=== PATIENT | male | born 1940 | race Caucasian/White ===

== ENCOUNTER 2021-09-08 12:53 | Inpatient (IN) | payer MEDICARE, BC ==
[~2021-09-08] VITALS: Ht 180.3 cm; Wt 96.6 kg
[2021-09-08 13:46] LABS: HEMATOCRIT 33.1 % (36.7-47.1); MEAN CORPUSCULAR HEMOGLOBIN 31.6 uug (23.8-33.4); PLATELET COUNT (AUTO) 165 K/uL (152-348)
--- NOTE | 2021-09-08 13:50 | NUR ---
Pt taken to CT by beatrice via gurney without difficulty.
[2021-09-08 13:59] LABS: CARBON DIOXIDE 37 mmol/L (21-32); CHLORIDE 96 mmol/L (98-107); GLUCOSE 110 mg/dL (74-106); POTASSIUM 3.7 mmol/L (3.5-5.1); UREA NITROGEN, BLOOD 19 mg/dL (7-18)
[2021-09-08 14:11] LABS: *BILIRUBIN,URIN NEGATIVE (NEGATIVE); *BLOOD, URINE NEGATIVE (NEGATIVE); *CLARITY,URINE CLEAR (CLEAR); *COLOR,URINE YELLOW (YELLOW); *KETONES,URINE NEGATIVE (NEGATIVE); *UROBILINOGEN,URINE >=8.0 E.U./dl (NORMAL); LEUKOCYTE ESTERASE ,URINE NEGATIVE (NEGATIVE); NITRITE, URINE NEGATIVE (NEGATIVE); PH,URINE 8.5 (5.0-8.0); UGLUCOSE NEGATIVE (NEGATIVE)
[2021-09-08 14:14] LABS: ALANINE AMINOTRANSFERASE 24 U/L (16-63); ALKALINE PHOSPHATASE 167 U/L (50-136); ASPARTATE AMINOTRANSFERASE 17 U/L (15-37); BILIRUBIN,DIRECT 0.9 mg/dL (0.0-0.2); BILIRUBIN,TOTAL 1.4 mg/dL (0.2-1.0); LIPASE 92 U/L (73-393); TOTAL PROTEIN, SERUM 6.9 g/dL (6.4-8.2)
--- NOTE | 2021-09-08 14:20 | NUR ---
Pt brought straight back to room 2a by utility clerk for severe back pain s/p slip and fall at [facility]. 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 Pt was immediately connected to bedside monitor, initial VS obtained VSS, Pt has 3+ pitting pedal edema, and slightly wet lung sounds at the bases. 128/72 upon arrival. 98.3 oral, 16rpm, pt is v-pacing at 100%, underlying rhythm is normal and regular SR at approx 80bpm. Pt has generalized weakness, and is markely weakened in the lower extremities. Pt denies any SOB, n/v, or dizziness.
[2021-09-08 14:37] LABS: CREATINE KINASE, TOTAL 29 U/L (39-308)
--- NOTE | 2021-09-08 14:45 | NUR ---
Pt escorted to bathroom via WC, per pt request bc pt was having BM and did not want to use bedside commode. Pt used the facilities and was escorted back to room and placed back onto rmaroa in pos of comfort. VS rechecked, VSS
--- NOTE | 2021-09-08 14:47 | NUR ---
Pt just taken down to CT by tech via [employer]. EKG done and shown to EDMD.
[2021-09-08] MEDS ORDERED: FUROSEMIDE 40 MG/4 ML VIAL IV ONE (15:30)
[2021-09-08] MEDS ORDERED: MORPHINE SULFATE 2 MG/1 ML DISP.SYRIN IV ONE (15:30)
--- NOTE | 2021-09-08 15:30 | NUR ---
20g angio inserted into Lt wrist without difficulty. Morphine and zofran given immediately after inserting IV. Pt tolerated well. Pt stated that he did feel some relief with the morphine.
[2021-09-08] MEDS ORDERED: ACETAMINOPHEN 325 MG TABLET PO PRN (15:45)
[2021-09-08] MEDS ORDERED: REMEDY ESSENTIAL ZINC PASTE 113 GM TP PRN (15:45)
[2021-09-08] MEDS ORDERED: ONDANSETRON 4 MG/2 ML VIAL IV PRN (15:45)
[2021-09-08] MEDS ORDERED: MAGNESIUM HYDROXIDE 30 ML LIQUID UDC PO PRN (15:45)
--- NOTE | 2021-09-08 15:50 | NUR ---
Pt escorted to restroom for second time via WC for another BM. observed toilet after pt used the restroom. feces had definite pinkish appearance with marked reddish coloration due to poss blood, Pt stated that is might be bc of hemroids or because he has soars down there that do bleed from time to time. EDMD notified.
[2021-09-08] MEDS ORDERED: MORPHINE SULFATE 2 MG/1 ML DISP.SYRIN ONE (16:15)
[2021-09-08] MEDS ORDERED: ONDANSETRON 4 MG/2 ML VIAL ONE (16:16)
[2021-09-08] MEDS ORDERED: FUROSEMIDE 40 MG/4 ML VIAL ONE (16:16)
[2021-09-08] MEDS ORDERED: MAGNESIUM HYDROXIDE 30 ML LIQUID UDC ONE (16:17)
--- NOTE | 2021-09-08 19:20 | NUR ---
Pt transfered to room 330 on tele floor via wc without incident or difficulty, all belongings accounted for. Thorough report given staff AMRN using SBAR method around approx [id number]. Green light obtained from receiving RN. Admitting informed that pt will be pushed upstairs and that he needs to be rolled over, this was at approx 1720. Was waiting on admitting to transfer pt. Pt was taken to room, placed on hospital bed in pos of comfort, oriented to room, daughter showed up to visit. Bed dropped, rails up, call button given to pt and told to call the nurse when ever he wants to get out of bed; pt understood. Initiall admitting VSS, SHOT EXAMINER and teleRN at the bedside for intake. RN informed that pt is complaining of be severe pain and that he will need to be medicated kris. No s/sxof distress present. VSS.
--- NOTE | 2021-09-08 19:30 | NUR ---
Admitted patient in Tele floor under the care of Dr Dennison, patient alert oriented, but forgetful, no sob no chest paint, tele monitor v pacing, with pacemaker, right and left buttock open wound, right hip thru thigh purple bruises, and upper thru lower back purple bruises, daughter stated that patient had 4x fall at home. Patient complain of gen/back pain due multiple falls at home, will medicate patient as ordered. oriented to call lights, cont to monitor.
[2021-09-08 20:00] VITALS: BP 112/58
[2021-09-08] MEDS ORDERED: AMIO200T5 PO (20:29)
[2021-09-08] MEDS ORDERED: FURO-151 PO (20:29)
[2021-09-08] MEDS ORDERED: ESZO3TAB27 PO (20:29)
[2021-09-08] MEDS ORDERED: ALPR0.255 PO (20:29)
[2021-09-08] MEDS ORDERED: POLY17PO4 PO (20:29)
[2021-09-08] MEDS ORDERED: TAMS-3 PO (20:29)
[2021-09-08] MEDS ORDERED: APIX5TAB PO (20:29)
[2021-09-08] MEDS ORDERED: SILV50CR32 TP (20:29)
[2021-09-08] MEDS ORDERED: METF-494 PO (20:29)
[2021-09-08] MEDS ORDERED: TOLN113C2 TP (20:29)
[2021-09-08] MEDS ORDERED: PANT40TA49 PO (20:29)
[2021-09-08] MEDS ORDERED: ASPI81TA31 PO (20:29)
[2021-09-08] MEDS ORDERED: FUROSEMIDE 40 MG/4 ML VIAL IV SCH ×2 (21:00)
[2021-09-08] MEDS ORDERED: MORPHINE SULFATE 2 MG/1 ML DISP.SYRIN IV PRN (21:30)
--- NOTE | 2021-09-08 21:49 | NUR ---
Lasix 40mg IV not given, patient refused the meds, state he took lasix already.
--- NOTE | 2021-09-08 23:18 | NUR ---
Morphine 2mg iv push not effective according to the patient, Dr Dennison made rounds and told patient that he will order Dilaudid IV push for severe pain, made follow up call to md and said he will put the order.
[2021-09-09] VITALS: BP 107/53
[2021-09-09] MEDS ORDERED: HYDROMORPHONE 1 MG/1 ML DISP.SYRIN IV PRN (01:30)
--- NOTE | 2021-09-09 01:59 | NUR ---
Notify Dr Mushtaq Campbell patient request for dilaudid iv push for pain, with order.
[2021-09-09 04:00] VITALS: BP 133/65
[2021-09-09 06:51] LABS: HEMATOCRIT 31.2 % (36.7-47.1); MEAN CORPUSCULAR HEMOGLOBIN 32.3 uug (23.8-33.4); MEAN CORPUSCULAR VOLUME 96.1 fL (73.0-96.2); PLATELET COUNT (AUTO) 162 K/uL (152-348)
[2021-09-09 07:33] LABS: ALANINE AMINOTRANSFERASE 17 U/L (16-63); ALKALINE PHOSPHATASE 157 U/L (50-136); ASPARTATE AMINOTRANSFERASE 20 U/L (15-37); BILIRUBIN,TOTAL 1.5 mg/dL (0.2-1.0); CARBON DIOXIDE 38 mmol/L (21-32); CHLORIDE 97 mmol/L (98-107); CREATININE 1.5 mg/dL (0.6-1.3); GLUCOSE 165 mg/dL (74-106); MAGNESIUM 1.8 mg/dL (1.8-2.4); PHOSPHOROUS 5.6 mg/dL (2.5-4.9); TOTAL PROTEIN, SERUM 6.5 g/dL (6.4-8.2); UREA NITROGEN, BLOOD 21 mg/dL (7-18)
[2021-09-09] MEDS ORDERED: Medication Not On Formulary EA (Metformin Hcl (Metformin Hcl Er) 1 TAB) PO SCH (08:00)
[2021-09-09 08:30] VITALS: BP 107/45
[2021-09-09] MEDS ORDERED: APIXABAN 5 MG TABLET PO SCH (09:00)
[2021-09-09] MEDS ORDERED: TAMSULOSIN HCL 0.4 MG CAP.SR.24H PO SCH (09:00)
[2021-09-09 09:06] LABS: IRON, SERUM 45 ug/dL (50-175)
[2021-09-09] MEDS: ASPIRIN 81 MG TAB.CHEW PO SCH (09:25)
[2021-09-09] MEDS: ALPRAZOLAM 0.25 MG TABLET PO SCH ×2 (09:26→17:00)
[2021-09-09] MEDS: AMIODARONE HCL 200 MG TABLET PO SCH ×2 (09:27→22:11)
[2021-09-09] MEDS: APIXABAN 5 MG TABLET PO SCH ×2 (09:28→17:29)
[2021-09-09] MEDS: PANTOPRAZOLE SODIUM 40 MG TABLET.DR PO SCH ×2 (09:32→17:27)
[2021-09-09] MEDS: FUROSEMIDE 40 MG TABLET PO SCH (09:32)
--- NOTE | 2021-09-09 10:00 | NUR ---
pt is a/o x 4, saturating 84 % room air, placed pt on 3L nasal cannula, saturation improved to 93%. Pt does not complain of pain or shortness of breath. Will continue to monitor.
[2021-09-09] MEDS: METFORMIN XR 500 MG TAB.SR.24H PO SCH ×2 (10:04→17:27)
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
[2021-09-09] MEDS ORDERED: ZOLP10TA2 PO (15:51)
[2021-09-09] MEDS ORDERED: FENO145T21 PO (16:15)
[2021-09-09] MEDS ORDERED: ATOR80TA PO (16:15)
[2021-09-09] MEDS ORDERED: LISI10TA29 PO (16:16)
[2021-09-09] MEDS ORDERED: ERGO500040 PO (16:20)
[2021-09-09] MEDS ORDERED: AMLO-212 PO (16:20)
[2021-09-09] MEDS ORDERED: SOTA120T22 PO (16:31)
[2021-09-09] MEDS ORDERED: ALPR1TAB7 PO (16:31)
[2021-09-09] MEDS: GLUCERNA SHAKE 237 ML CAN PO SCH (17:28)
[2021-09-09] MEDS ORDERED: MIRALAX 17 GM POWD.PACK PO PRN (20:30)
[2021-09-09] MEDS: THERAHONEY GEL 1.5 OZ TUBE TOP SCH (21:00)
[2021-09-09] MEDS ORDERED: ATORVASTATIN 40 MG TABLET PO SCH (21:00)
[2021-09-09 21:14] VITALS: BP 114/56
[2021-09-09] MEDS: HYDROMORPHONE 1 MG/1 ML DISP.SYRIN IV PRN (22:42)
[2021-09-10 00:41] VITALS: BP 118/66
[2021-09-10] MEDS: ZOLPIDEM 5 MG TABLET PO PRN ×2 (01:08→22:00)
--- NOTE | 2021-09-10 01:10 | NUR ---
Received report from PM shift Kaden ROSENTHAL. Pt is alert and oriented x2, complaining or lower back pain. Explained to pt pain medication schedule. Offered Yolis DESAI to help with sleep, he agreed. On O2 at 3lpm via NC, no respiratory distress noted. IV access on L wrist G#20, patent and intact. Call light placed within reach. Will continue to monitor. Addendum: 09/10/21 at 0642 by MARCIA ALEGRIA RN Will given IV pain medication once due. Addendum: 09/10/21 at 0649 by MARCIA ALEGRIA RN Pt on NPO post midnight for abdominal ultrasound
[2021-09-10] MEDS: HYDROMORPHONE 1 MG/1 ML DISP.SYRIN IV PRN ×3 (03:36→20:56)
[2021-09-10 04:50] VITALS: BP 110/47
[2021-09-10] MEDS: PANTOPRAZOLE SODIUM 40 MG TABLET.DR PO SCH ×2 (06:33→17:23)
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
--- NOTE | 2021-09-10 08:00 | NUR ---
Assisted out of bed to commode. Sponge bath given. Maintained NPO, for abdominal ultrasound
[2021-09-10] MEDS ORDERED: SOTALOL HCL 120 MG PO SCH (09:00)
[2021-09-10] MEDS ORDERED: FENOFIBRATE NANOCRYSTALLIZED 145 MG TABLET PO SCH (09:00)
[2021-09-10] MEDS ORDERED: TAMSULOSIN HCL 0.4 MG CAP.SR.24H PO SCH (09:00)
[2021-09-10] MEDS ORDERED: SILVER SULFADIAZINE 1% CREAM 50 GM TP SCH (09:00)
[2021-09-10] MEDS ORDERED: ALPRAZOLAM 0.25 MG TABLET PO PRN (09:30)
[2021-09-10] MEDS ORDERED: ALPRAZOLAM 0.5 MG TABLET PO PRN (09:45)
--- NOTE | 2021-09-10 10:30 | NUR ---
Ultrasound of abdomen done. Breakfast tray served. Due medications given. Reports of back pain. Dilaudid 1 mg given with relief.
[2021-09-10] MEDS: METFORMIN XR 500 MG TAB.SR.24H PO SCH ×2 (10:49→17:23)
[2021-09-10] MEDS: FUROSEMIDE 40 MG TABLET PO SCH (10:50)
[2021-09-10] MEDS: ASPIRIN 81 MG TAB.CHEW PO SCH (10:50)
[2021-09-10] MEDS: LISINOPRIL 10 MG TABLET PO SCH (10:51)
[2021-09-10] MEDS: AMLODIPINE 5 MG TABLET PO SCH (10:51)
[2021-09-10] MEDS: THERAHONEY GEL 1.5 OZ TUBE TOP SCH (10:52)
[2021-09-10] MEDS: GLUCERNA SHAKE 237 ML CAN PO SCH ×3 (10:52→17:23)
[2021-09-10] MEDS: AMIODARONE HCL 200 MG TABLET PO SCH ×2 (10:52→20:50)
[2021-09-10] MEDS: APIXABAN 5 MG TABLET PO SCH ×2 (10:54→17:24)
[2021-09-10 12:00] VITALS: BP 110/55
[2021-09-10 14:04] LABS: BILIRUBIN,TOTAL 1.3 mg/dL (0.2-1.0); CREATININE 1.1 mg/dL (0.6-1.3); POTASSIUM 4.1 mmol/L (3.5-5.1); TOTAL PROTEIN, SERUM 6.7 g/dL (6.4-8.2)
--- NOTE | 2021-09-10 14:14 | NUR ---
Assisted out of bed by PT, transported to the gym
[2021-09-10 16:47] VITALS: BP 124/65
--- NOTE | 2021-09-10 18:34 | NUR ---
Wound care done to sacral area. Repositioned to turn to the sides but patient unable due to back pain. Dr. Shaw seen and examined patient with orders for CT of neck, thoracic, lumbar spine.
--- NOTE | 2021-09-10 19:30 | NUR ---
PT PICKED UP BY LABELLING MACHINE OPERATOR FOR SCHEDULED CT SCAN OF CERVICAL, LUMBAR AND THORACIC SPINE.
[2021-09-10 20:00] VITALS: BP 103/80
--- NOTE | 2021-09-10 20:30 | NUR ---
PATIENT BACK INTO THE UNIT.
--- NOTE | 2021-09-10 20:40 | NUR ---
RECEIVED PATIENT IN BED. AAOX4. ABLE TO MAKE NEEDS KNOWN. IV ACCESS PATENT AND INTACT. ON 3L O2. PATIENT DENIES SOB, CHEST PAIN OR DIZZINESS. PT COMPLAINED OF HAVING BACK PAIN. SAFETY PRECAUTIONS INITIATED. CALL LIGHT WITHIN REACH.
[2021-09-10] MEDS ORDERED: MIRALAX 17 GM POWD.PACK PO SCH (21:00)
--- NOTE | 2021-09-10 22:10 | NUR ---
URINE COLLECTED AND SENT TO LAB.
[2021-09-10 22:23] LABS: *BILIRUBIN,URIN NEGATIVE (NEGATIVE); *CLARITY,URINE CLEAR (CLEAR); *COLOR,URINE YELLOW (YELLOW); *KETONES,URINE NEGATIVE (NEGATIVE); *UROBILINOGEN,URINE >=8.0 E.U./dl (NORMAL); LEUKOCYTE ESTERASE ,URINE NEGATIVE (NEGATIVE); NITRITE, URINE NEGATIVE (NEGATIVE); UGLUCOSE NEGATIVE (NEGATIVE)
[2021-09-10 22:24] LABS: *BLOOD, URINE TRACE (NEGATIVE)
[2021-09-10 22:28] LABS: *CREATININE,URINE 51.4 mg/dL (30-125)
[2021-09-11] MEDS: HYDROMORPHONE 1 MG/1 ML DISP.SYRIN IV PRN ×4 (00:18→23:15)
--- NOTE | 2021-09-11 00:21 | NUR ---
PATIENT COMPLAINED OF HAVING BACK PAIN, REPOSITIONED PATIENT AND GAVE PRN DILAUDID REQUESTED.
[2021-09-11 00:39] LABS: BACTERIA,URINE NONE SEEN /HPF (NONE SEEN); SQUAMOUS EPITHELIAL CELL,UR FEW /HPF (NONE SEEN); WBC,URINE 0-3 /HPF (0-3)
--- NOTE | 2021-09-11 04:32 | NUR ---
ATTEMPTED TO TITRATE PATIENT'S O2 DOWN TO 2L FROM 3L, HOWEVER, PATIENT WAS SATURATING 91%. INCREASED BACK TO 3L, PATIENT IS SATURATING 96%.
[2021-09-11 04:53] VITALS: BP 122/64
[2021-09-11] MEDS: PANTOPRAZOLE SODIUM 40 MG TABLET.DR PO SCH ×2 (06:27→16:41)
--- NOTE | 2021-09-11 06:57 | NUR ---
PATIENT SLEPT THROUGH THE NIGHT WITH FREQUENT COMPLAINTS OF PAIN. REPOSITIONED FOR COMFORT AND PRN DILAUDID GIVEN. IV ACCESS PATENT AND INTACT. SAFETY PRECAUTIONS MAINTAINED. CALL LIGHT WITHIN REACH.
[2021-09-11] MEDS: METFORMIN XR 500 MG TAB.SR.24H PO SCH ×2 (08:36→17:26)
[2021-09-11] MEDS: FUROSEMIDE 40 MG TABLET PO SCH (08:37)
[2021-09-11] MEDS: LISINOPRIL 10 MG TABLET PO SCH (08:37)
[2021-09-11] MEDS: GLUCERNA SHAKE 237 ML CAN PO SCH ×3 (08:37→16:42)
[2021-09-11] MEDS: APIXABAN 5 MG TABLET PO SCH ×2 (08:38→16:41)
[2021-09-11] MEDS: ASPIRIN 81 MG TAB.CHEW PO SCH (08:38)
[2021-09-11] MEDS: AMIODARONE HCL 200 MG TABLET PO SCH ×2 (08:38→20:38)
[2021-09-11] MEDS: AMLODIPINE 5 MG TABLET PO SCH (08:39)
[2021-09-11] MEDS: THERAHONEY GEL 1.5 OZ TUBE TOP SCH (08:40)
--- NOTE | 2021-09-11 09:36 | NUR ---
awake alert x3 forgetful. on 3 lpm nc denies sob or pain at this time. positioned comfortably. needs attended.
[2021-09-11 11:36] VITALS: BP 108/54
--- NOTE | 2021-09-11 12:10 | NUR ---
seen and examined by dr. reyes with new order for rd consult and ua in am.
[2021-09-11 16:00] VITALS: BP 121/58
[2021-09-11] MEDS ORDERED: MIRALAX 17 GM POWD.PACK PO PRN (17:30)
--- NOTE | 2021-09-11 19:35 | NUR ---
RECEIVED PATIENT IN BED WITH RELATIVE AT BED SIDE. AAOX4. ON 2L O2. DENIES SOB, CHEST PAIN OR DIZZINESS. HOWEVER, PATIENT COMPLAINED OF HAVING BACK PAIN AND STOMACH ACID. PATIENT REPOSITIONED FOR COMFORT. IV ACCESS PATENT AND INTACT. SAFETY PRECAUTIONS INITIATED. CALL LIGHT WITHIN REACH.
[2021-09-11 20:18] VITALS: BP 124/61
[2021-09-11] MEDS ORDERED: FAMOTIDINE 20 MG TABLET PO SCH (21:00)
[2021-09-11] MEDS ORDERED: TAMSULOSIN HCL 0.4 MG CAP.SR.24H PO SCH (21:00)
--- NOTE | 2021-09-11 21:30 | NUR ---
PATIENT COMPLAINED OF HAVING STOMACH ACID AND REQUESTED FOR PEPCID, NOTIFIED DEVOPS ENGINEER [facility] MOTION PICTURE PRINTER. DEVOPS ENGINEER ORDERED [id number], BID. CALLED PHARMACY TO VERIFY MEDICATION.
--- NOTE | 2021-09-11 22:10 | NUR ---
URINE COLLECTED VIA CLEAN CATCH, COLLECTED AND SENT TO LAB.
[2021-09-12 00:24] LABS: *BILIRUBIN,URIN NEGATIVE (NEGATIVE); *BLOOD, URINE NEGATIVE (NEGATIVE); *CLARITY,URINE CLEAR (CLEAR); *COLOR,URINE YELLOW (YELLOW); *KETONES,URINE NEGATIVE (NEGATIVE); *UROBILINOGEN,URINE >=8.0 E.U./dl (NORMAL); LEUKOCYTE ESTERASE ,URINE NEGATIVE (NEGATIVE); NITRITE, URINE NEGATIVE (NEGATIVE); PH,URINE 6.5 (5.0-8.0); UGLUCOSE NEGATIVE (NEGATIVE)
[2021-09-12] MEDS: ZOLPIDEM 5 MG TABLET PO PRN (00:38)
[2021-09-12 04:18] VITALS: BP 119/67
--- NOTE | 2021-09-12 06:24 | NUR ---
Pt.resting comfortably at this time. Denied pain when asked. Repositioned for comfort. Needs attended. In no acute resp.distress noted.
[2021-09-12] MEDS: PANTOPRAZOLE SODIUM 40 MG TABLET.DR PO SCH (06:33)
[2021-09-12 07:04] LABS: HEMATOCRIT 29.6 % (36.7-47.1); MEAN CORPUSCULAR HEMOGLOBIN 31.9 uug (23.8-33.4); MEAN CORPUSCULAR VOLUME 94.1 fL (73.0-96.2); PLATELET COUNT (AUTO) 108 K/uL (152-348)
[2021-09-12 07:43] LABS: BILIRUBIN,TOTAL 1.2 mg/dL (0.2-1.0); CREATININE 0.9 mg/dL (0.6-1.3); MAGNESIUM 1.7 mg/dL (1.8-2.4); PHOSPHOROUS 3.2 mg/dL (2.5-4.9); POTASSIUM 3.9 mmol/L (3.5-5.1); TOTAL PROTEIN, SERUM 6.3 g/dL (6.4-8.2); URIC ACID 5.2 mg/dL (3.5-7.2)
[2021-09-12] MEDS: FUROSEMIDE 40 MG TABLET PO SCH (08:46)
[2021-09-12] MEDS: AMLODIPINE 5 MG TABLET PO SCH (08:46)
[2021-09-12] MEDS: ASPIRIN 81 MG TAB.CHEW PO SCH (08:46)
[2021-09-12] MEDS: APIXABAN 5 MG TABLET PO SCH ×2 (08:47→17:15)
[2021-09-12] MEDS: GLUCERNA SHAKE 237 ML CAN PO SCH ×3 (08:48→17:16)
[2021-09-12] MEDS: LISINOPRIL 10 MG TABLET PO SCH (08:48)
[2021-09-12] MEDS: METFORMIN XR 500 MG TAB.SR.24H PO SCH ×2 (08:48→17:15)
[2021-09-12] MEDS: AMIODARONE HCL 200 MG TABLET PO SCH (08:48)
[2021-09-12] MEDS: THERAHONEY GEL 1.5 OZ TUBE TOP SCH (08:49)
[2021-09-12] MEDS ORDERED: MAGNESIUM OXIDE 400 MG TABLET PO ONE (09:15)
[2021-09-12 10:06] LABS: *ANTI-SCLERODERMA-70 AB <0.2 AI (0.0-0.9); *SJOGREN'S ANTI-SS-A 0.2 AI (0.0-0.9); *SJOGREN'S ANTI-SS-B <0.2 AI (0.0-0.9); *SMITH ANTIBODIES <0.2 AI (0.0-0.9); ANTI-DNA(DS) AB, QN 1 IU/mL (0-9)
[2021-09-12 11:33] VITALS: BP 126/60
[2021-09-12] MEDS: HYDROMORPHONE 1 MG/1 ML DISP.SYRIN IV PRN (15:03)
[2021-09-12 16:00] VITALS: BP 123/63
--- NOTE | 2021-09-12 16:57 | NUR ---
rd recommends fallon packet bid for wound healing, relayed to dr. batista with new order.
[2021-09-12] MEDS ORDERED: ARGININE/GLUTAMINE/CALCIUM BMB 1 EACH POWD.PACK PO SCH (17:00)
[2021-09-12] MEDS ORDERED: POLY17PO4 PO (17:23)
[2021-09-12] MEDS ORDERED: NUT.237L36 PO (17:23)
[2021-09-12] MEDS ORDERED: MENT113O TOP (17:23)
[2021-09-12] MEDS ORDERED: NUTR1PAC14 PO (17:23)
[2021-09-12] MEDS ORDERED: TAMS-3 PO (17:23)
[2021-09-12] MEDS ORDERED: MENT113O TP (17:23)
[2021-09-12] MEDS ORDERED: ASPI-618 PO (17:23)
[2021-09-12] MEDS ORDERED: HYDR1DIS2 IV (17:23)
[2021-09-12] MEDS ORDERED: PANT40TA49 PO (17:23)
[2021-09-12] MEDS ORDERED: AMIO200T6 PO (17:23)
[2021-09-12] MEDS ORDERED: ACET325T53 PO (17:23)
--- NOTE | 2021-09-12 17:32 | NUR ---
informed dr batista of patient's request to increase dilaudid with new order.
--- NOTE | 2021-09-12 18:54 | NUR ---
discharged to acute rehab unit. pt agreeable with plan, verbalized understanding of instructions. denies pain or sob. family at bedside aware.
[2021-09-12] MEDS ORDERED: HYDROMORPHONE 1 MG/1 ML DISP.SYRIN IV PRN (20:30)
[2021-09-13] MEDS ORDERED: PANTOPRAZOLE SODIUM 40 MG TABLET.DR PO SCH ×2 (07:00)
[2021-09-13 08:06] LABS: A/G RATIO 0.7 (0.7-1.7); ALBUMIN 2.7 g/dL (2.9-4.4); ALPHA-1-GLOBULIN 0.5 g/dL (0.0-0.4); ALPHA-2-GLOBULIN 0.9 g/dL (0.4-1.0); BETA GLOBULIN 1.3 g/dL (0.7-1.3); GAMMA GLOBULIN 1.1 g/dL (0.4-1.8); GLOBULIN, TOTAL 3.8 g/dL (2.2-3.9); M-SPIKE Not Observed g/dL (Not Observed)
[2021-09-13] MEDS ORDERED: ERGOCALCIFEROL 50,000 UNIT CAPSULE PO SCH (09:00)
== END 2021-09-12 19:00 | DRG 291 ==
LOC: ER 12:53 → TELE3 19:00 → MEDSURG3 09-10 12:45
PROVIDERS: ADMIT Internal Medicine; ATTEND Internal Medicine
DX: I11.0 Hypertensive heart disease with heart failure (principal); E43 Unspecified severe protein-calorie malnutrition; I50.43 Acute on chronic combined systolic (congestive) and diastolic (congestive) heart failure; N17.0 Acute kidney failure with tubular necrosis; E87.3 Alkalosis; M48.56XA Collapsed vertebra, not elsewhere classified, lumbar region, initial encounter for fracture; J90 Pleural effusion, not elsewhere classified; R29.6 Repeated falls; M70.21 Olecranon bursitis, right elbow; D63.8 Anemia in other chronic diseases classified elsewhere; E78.5 Hyperlipidemia, unspecified; E88.09 Other disorders of plasma-protein metabolism, not elsewhere classified; I42.9 Cardiomyopathy, unspecified; Z79.01 Long term (current) use of anticoagulants; Z95.0 Presence of cardiac pacemaker; I48.0 Paroxysmal atrial fibrillation; E11.9 Type 2 diabetes mellitus without complications; R53.1 Weakness; I25.10 Atherosclerotic heart disease of native coronary artery without angina pectoris; L89.156 Pressure-induced deep tissue damage of sacral region; D46.9 Myelodysplastic syndrome, unspecified; M79.10 Myalgia, unspecified site; Z20.822 Contact with and (suspected) exposure to COVID-19; M19.90 Unspecified osteoarthritis, unspecified site; Z74.09 Other reduced mobility; E66.9 Obesity, unspecified; Z68.29 Body mass index [BMI] 29.0-29.9, adult; N28.1 Cyst of kidney, acquired; Z91.81 History of falling; M48.07 Spinal stenosis, lumbosacral region
CPT/HCPCS: 36415; 70450; 71045; 72100; 72125; 72131; 73080; 76700; 83550; 83605; 83690; 83735; 84100; 84155; 84165; 84166; 84300; 84443; 84484; 84550; 85025; 85651; 86038; 87040; 93005; 93307; 97161; A4663; A6209; A6213; G0378; J1170; J1940; J2270; J2405

== ENCOUNTER 2021-09-12 19:39 | Inpatient (IN) | payer MEDICARE, BC ==
[~2021-09-12] VITALS: Ht 180.3 cm; Wt 93.1 kg
[~2021-09-12 19:39] MED LIST: ACET325T53 PO; ALPR1TAB7 PO; AMIO200T5 PO; AMIO200T6 PO; AMLO-212 PO; APIX5TAB PO; ASPI-618 PO; ASPI81TA31 PO; ATOR80TA PO; ERGO500040 PO; FENO145T21 PO; FURO-151 PO; HYDR1DIS2 IV; LISI10TA29 PO; MENT113O TOP; MENT113O TP; METF-494 PO; NUT.237L36 PO; NUTR1PAC14 PO; PANT40TA49 PO; POLY17PO4 PO; SILV50CR32 TP; SOTA120T22 PO; TAMS-3 PO; ZOLP10TA2 PO
[2021-09-12 20:00] VITALS: BP_SYST 124; BP_SYST 140; BP_DIAS 44; BP_DIAS 65
--- NOTE | 2021-09-12 20:00 | NUR ---
RECEIVED PATIENT IN ROOM WITH FAMILY AT BEDSIDE. PATIENT IS A/O X4. VERY PLEASANT WHEN APPROACHED. VS WNL. C/O PAIN IN LOWER ABDOMEN AND LOWER BACK. O2 2L NC SATING WELL. CALL LIGHT IN REACH. ALL NEEDS ATTENDED. WILL CONTINUE TO MONITOR AND ASSESS.
[2021-09-12] MEDS: HYDROMORPHONE 1 MG/1 ML DISP.SYRIN IV PRN ×2 (20:19→23:19)
--- NOTE | 2021-09-12 20:19 | NUR ---
at 2019H Dilaudid 1.5 mg prn given to 9/10 pain scale for his lower abdomen. Pt tolerated it well. Will continue to monitor.
[2021-09-12] MEDS ORDERED: MIRALAX 17 GM POWD.PACK PO PRN (20:30)
[2021-09-12] MEDS ORDERED: REMEDY ESSENTIAL ZINC PASTE 113 GM TP PRN (20:30)
[2021-09-12] MEDS ORDERED: HYDROMORPHONE 1 MG/1 ML DISP.SYRIN IV PRN (20:30)
[2021-09-12] MEDS ORDERED: Medication Not On Formulary EA (Zolpidem Tartrate (Ambien) 10 MG) PO PRN (20:30)
[2021-09-12] MEDS ORDERED: ACETAMINOPHEN 325 MG TABLET PO PRN (20:30)
[2021-09-12] MEDS ORDERED: Medication Not On Formulary EA (Alprazolam (Xanax) 1 MG) PO PRN (20:30)
[2021-09-12] MEDS: AMIODARONE HCL 200 MG TABLET PO SCH (21:12)
[2021-09-12] MEDS: TAMSULOSIN HCL 0.4 MG CAP.SR.24H PO SCH (21:13)
--- NOTE | 2021-09-12 22:00 | NUR ---
Pt stated Dilaudid medication help but has still some pain. Pt stable. Will continue to monitor.
[2021-09-12] MEDS: ALPRAZOLAM 0.5 MG TABLET PO PRN (22:58)
--- NOTE | 2021-09-12 23:35 | NUR ---
at 2319H Dilaudid 1.5 mg prn given to pt for his lower abdomen. Pt tolerated it well. Will continue to monitor.
[2021-09-13] MEDS: ZOLPIDEM 5 MG TABLET PO PRN ×2 (00:17→23:17)
[2021-09-13 04:00] VITALS: BP 104/56
[2021-09-13] MEDS: PANTOPRAZOLE SODIUM 40 MG TABLET.DR PO SCH (06:23)
[2021-09-13] MEDS ORDERED: Medication Not On Formulary EA (Metformin Hcl (Metformin Hcl Er) 1 TAB) PO SCH (08:00)
[2021-09-13 08:04] VITALS: BP 124/64
[2021-09-13] MEDS: METFORMIN XR 500 MG TAB.SR.24H PO SCH ×2 (08:41→17:06)
[2021-09-13] MEDS: GLUCERNA SHAKE 237 ML CAN PO SCH ×3 (08:41→17:07)
[2021-09-13] MEDS: FUROSEMIDE 40 MG TABLET PO SCH (08:43)
[2021-09-13] MEDS: AMLODIPINE 5 MG TABLET PO SCH (08:43)
[2021-09-13] MEDS: LISINOPRIL 10 MG TABLET PO SCH (08:43)
[2021-09-13] MEDS: AMIODARONE HCL 200 MG TABLET PO SCH ×2 (08:44→20:33)
[2021-09-13] MEDS: ASPIRIN EC 81 MG TABLET.DR PO SCH (08:44)
[2021-09-13] MEDS: REMEDY ESSENTIAL ZINC PASTE 113 GM TOP SCH (08:45)
[2021-09-13] MEDS: ARGININE/GLUTAMINE/CALCIUM BMB 1 EACH POWD.PACK PO SCH ×2 (08:45→17:06)
[2021-09-13] MEDS: APIXABAN 5 MG TABLET PO SCH ×2 (08:48→16:14)
[2021-09-13] MEDS ORDERED: SILVER SULFADIAZINE 1% CREAM 50 GM TP SCH (09:00)
[2021-09-13] MEDS: HYDROMORPHONE HCL 2 MG TABLET PO PRN ×2 (14:26→20:32)
[2021-09-13 16:00] VITALS: BP 132/68
--- NOTE | 2021-09-13 18:54 | NUR ---
Patient request to have more pain medications, reported to dr mercer, dr mercer responded and stated he is going to be here tomorrow and will talk to patient
[2021-09-13 20:00] VITALS: BP 125/77
[2021-09-13] MEDS: TAMSULOSIN HCL 0.4 MG CAP.SR.24H PO SCH (20:33)
[2021-09-13] MEDS: ALPRAZOLAM 0.5 MG TABLET PO PRN (22:17)
[2021-09-14 04:00] VITALS: BP 128/58
--- NOTE | 2021-09-14 04:42 | NUR ---
Resting in bed. AAOx4 Admitted for on chronic diastolic heart failure. All needs attended. VSS. Kept comfortable. Will monitor patient. Fall precautions. On 2L via nasal cannula. Denies any pain nor any discomfort. Medicated for pain and sleep. Tolerated well. OOB to bedside commode. BM noted this shift.
[2021-09-14] MEDS: PANTOPRAZOLE SODIUM 40 MG TABLET.DR PO SCH (06:20)
--- NOTE | 2021-09-14 07:00 | NUR ---
Patient slept well most of the shift. Patient was mad and was asking for the assistant art director because he was saying the medication for pain didnt help him and he wasnt able to sleep.Patient refused to have picture taken.
[2021-09-14 07:30] VITALS: BP 123/63
[2021-09-14] MEDS: HYDROMORPHONE HCL 2 MG TABLET PO PRN ×2 (07:41→08:54)
[2021-09-14] MEDS: GLUCERNA SHAKE 237 ML CAN PO SCH (08:00)
--- NOTE | 2021-09-14 08:04 | NUR ---
patient verbalized he is very upset about his medications, this technical report writer assessed patient for pain, and offered pain medications, refused to get pain medication, stated he could not sleep from last three nights, he is not getting his medications for insomnia, whatever he is use to take at home, this technical report writer asked the patient pharmacy information so we can get home meds records from pharmacy, instead patient dials a number on his cell phone of his personal doctor name Dr Ambrocio, patient puts him on the speaker and asked this technical report writer to talk to him, patient stated he takes at home 20mg of ambien, 2mg of xanax, and 3mg of lunesta and Dilaudid as needed every 3 hours patient was not sure about the dose of Dilaudid. patient personal doctor Cristóbal stated on the phone that 2mg of xanax and 20mg of ambien is too much which is not recommended and he is not involved in his care while he ( patient ) is in the hospital. patient gets mad at his personal doctor as well. patient threatens this technical report writer that he is going to call health department, [employer], that he is not getting what he suppose to get. This technical report writer explained to patient that Dr mercer was made aware yesterday about your request of change in medications, and doctor mercer will be here today to visit the patient.
[2021-09-14] MEDS: METFORMIN XR 500 MG TAB.SR.24H PO SCH ×2 (08:54→18:18)
[2021-09-14] MEDS: APIXABAN 5 MG TABLET PO SCH ×2 (08:55→16:40)
[2021-09-14] MEDS: LISINOPRIL 10 MG TABLET PO SCH (08:56)
[2021-09-14] MEDS: AMLODIPINE 5 MG TABLET PO SCH ×2 (08:56→09:00)
[2021-09-14] MEDS: ASPIRIN EC 81 MG TABLET.DR PO SCH (08:56)
[2021-09-14] MEDS: AMIODARONE HCL 200 MG TABLET PO SCH ×2 (08:56→20:44)
[2021-09-14] MEDS: FUROSEMIDE 40 MG TABLET PO SCH (08:57)
[2021-09-14] MEDS: ARGININE/GLUTAMINE/CALCIUM BMB 1 EACH POWD.PACK PO SCH ×2 (08:57→16:40)
[2021-09-14] MEDS: REMEDY ESSENTIAL ZINC PASTE 113 GM TOP SCH (08:58)
--- NOTE | 2021-09-14 14:39 | NUR ---
INTERDISCIPLINARY TEAM CONFERENCE
[2021-09-14 15:34] VITALS: BP 127/59
[2021-09-14] MEDS: MIRALAX 17 GM POWD.PACK PO PRN (18:58)
[2021-09-14 20:00] VITALS: BP 137/65
[2021-09-14] MEDS: TAMSULOSIN HCL 0.4 MG CAP.SR.24H PO SCH (20:43)
[2021-09-14] MEDS: ZOLPIDEM 5 MG TABLET PO PRN (21:25)
[2021-09-14] MEDS: BISMUTH SUBSALICYLATE 262 MG/15 ML UDC PO PRN (21:25)
[2021-09-15] MEDS: HYDROMORPHONE HCL 2 MG TABLET PO PRN ×2 (00:13→23:04)
[2021-09-15 04:00] VITALS: BP 116/62
--- NOTE | 2021-09-15 04:20 | NUR ---
Pt complained of burning sensation while urinating, requested to have UA with culture done. Specimen collected and sent to lab.
[2021-09-15 04:42] LABS: *BILIRUBIN,URIN NEGATIVE (NEGATIVE); *BLOOD, URINE NEGATIVE (NEGATIVE); *CLARITY,URINE CLEAR (CLEAR); *COLOR,URINE YELLOW (YELLOW); *KETONES,URINE NEGATIVE (NEGATIVE); LEUKOCYTE ESTERASE ,URINE NEGATIVE (NEGATIVE); NITRITE, URINE NEGATIVE (NEGATIVE); UGLUCOSE NEGATIVE (NEGATIVE)
[2021-09-15] MEDS: PANTOPRAZOLE SODIUM 40 MG TABLET.DR PO SCH (06:04)
[2021-09-15 08:19] VITALS: BP 137/87
[2021-09-15] MEDS: FUROSEMIDE 40 MG TABLET PO SCH (08:19)
[2021-09-15] MEDS: MIRALAX 17 GM POWD.PACK PO PRN (08:19)
[2021-09-15] MEDS: AMLODIPINE 5 MG TABLET PO SCH (08:21)
[2021-09-15] MEDS: ASPIRIN EC 81 MG TABLET.DR PO SCH (08:22)
[2021-09-15] MEDS: AMIODARONE HCL 200 MG TABLET PO SCH (08:24)
[2021-09-15] MEDS: LISINOPRIL 10 MG TABLET PO SCH (08:25)
[2021-09-15] MEDS: REMEDY ESSENTIAL ZINC PASTE 113 GM TOP SCH (08:25)
[2021-09-15] MEDS: ARGININE/GLUTAMINE/CALCIUM BMB 1 EACH POWD.PACK PO SCH ×2 (08:26→16:19)
[2021-09-15] MEDS: MORPHINE SULFATE SR 15 MG TABLET.SA PO SCH (08:30)
[2021-09-15] MEDS: APIXABAN 5 MG TABLET PO SCH ×2 (08:31→16:18)
[2021-09-15] MEDS: METFORMIN XR 500 MG TAB.SR.24H PO SCH ×2 (08:32→17:39)
[2021-09-15] MEDS: BISMUTH SUBSALICYLATE 262 MG/15 ML UDC PO PRN (08:33)
--- NOTE | 2021-09-15 13:23 | NUR ---
INDIVIDUALIZED PLAN OF CARE
[2021-09-15 16:03] VITALS: BP 135/62
--- NOTE | 2021-09-15 16:49 | NUR ---
patient is over concerned about his history of getting bowel obstrictions, he is requesting multiple laxatives, joy salomon notified
[2021-09-15] MEDS ORDERED: LACTULOSE 20 G/30 ML LIQUID UDC PO PRN (17:45)
[2021-09-15] MEDS: BISACODYL 10 MG SUPP.RECT RC PRN (17:46)
[2021-09-15 20:32] VITALS: BP 129/60
[2021-09-15] MEDS: TAMSULOSIN HCL 0.4 MG CAP.SR.24H PO SCH (20:51)
--- NOTE | 2021-09-15 22:00 | NUR ---
Pt complained of constipation and very concern of bowel obstruction given his history. He requested for Miralax 3 packs every night, which accg to him regulates his bowel movement. He took a couple of laxatives today and said none of them works. Dr. Wallis made aware and gave an order for the medication.
[2021-09-15] MEDS: ZOLPIDEM 5 MG TABLET PO PRN (22:14)
[2021-09-15] MEDS: ALPRAZOLAM 0.5 MG TABLET PO PRN (23:35)
[2021-09-16 04:55] VITALS: BP 130/70
[2021-09-16] MEDS: PANTOPRAZOLE SODIUM 40 MG TABLET.DR PO SCH (06:05)
--- NOTE | 2021-09-16 06:19 | NUR ---
pt complained of not being able to sleep throughout the night d/t sacral pain. Optifoam gentle applied and placed pillow under to relieve pressure.
[2021-09-16 08:10] VITALS: BP 124/59
[2021-09-16] MEDS: METFORMIN XR 500 MG TAB.SR.24H PO SCH ×2 (08:10→17:30)
[2021-09-16] MEDS: REMEDY ESSENTIAL ZINC PASTE 113 GM TOP SCH (08:40)
[2021-09-16] MEDS: AMLODIPINE 5 MG TABLET PO SCH (08:40)
[2021-09-16] MEDS: MORPHINE SULFATE SR 15 MG TABLET.SA PO SCH (08:40)
[2021-09-16] MEDS: LISINOPRIL 10 MG TABLET PO SCH (08:40)
[2021-09-16] MEDS: ASPIRIN EC 81 MG TABLET.DR PO SCH (08:41)
[2021-09-16] MEDS: AMIODARONE HCL 200 MG TABLET PO SCH (08:42)
[2021-09-16] MEDS: FUROSEMIDE 40 MG TABLET PO SCH (08:42)
[2021-09-16] MEDS: APIXABAN 5 MG TABLET PO SCH ×2 (08:49→17:31)
[2021-09-16] MEDS: ARGININE/GLUTAMINE/CALCIUM BMB 1 EACH POWD.PACK PO SCH ×2 (08:50→17:30)
[2021-09-16] MEDS ORDERED: MIRALAX 17 GM POWD.PACK PO SCH (09:00)
[2021-09-16 16:18] VITALS: BP 144/61
--- NOTE | 2021-09-16 16:30 | NUR ---
Received Pt resting in bed. AAOx4 Admitted for on chronic diastolic heart failure. respirations even and unlabored at room air .Up with PT ambulating in the hallway with FWW. All needs attended. Kept comfortable. Denies any pain nor any discomfort.Medicated for pain as ordered . Tolerated well. OOB to bedside commode.Will continue to monitor closely for comfort and safety.
--- NOTE | 2021-09-16 19:30 | NUR ---
Received patient resting in bed awake alert and oriented x 4, with even and unlabored respiration on room air. Denies pain at this time. Call light within easy reach.
[2021-09-16 20:00] VITALS: BP 106/51
[2021-09-16] MEDS: TAMSULOSIN HCL 0.4 MG CAP.SR.24H PO SCH (22:08)
[2021-09-16] MEDS: ALPRAZOLAM 0.5 MG TABLET PO PRN (22:09)
[2021-09-16] MEDS: MIRALAX 17 GM POWD.PACK PO SCH (22:10)
--- NOTE | 2021-09-16 22:10 | NUR ---
Patient refused to take 3 packs miralax, stated "I will take only 1 pack this time".
[2021-09-16] MEDS: ZOLPIDEM 5 MG TABLET PO PRN (22:50)
[2021-09-16] MEDS: HYDROMORPHONE HCL 2 MG TABLET PO PRN (23:17)
[2021-09-17 04:00] VITALS: BP 116/61
--- NOTE | 2021-09-17 06:02 | NUR ---
Patient slept intermittently throughout the night, easy to arouse. Medicated for pain as ordered with good effect. Needs assessed and attended to. Call light placed within easy reach.
[2021-09-17] MEDS: PANTOPRAZOLE SODIUM 40 MG TABLET.DR PO SCH (06:07)
[2021-09-17 07:41] VITALS: BP 127/59
[2021-09-17] MEDS: MORPHINE SULFATE SR 15 MG TABLET.SA PO SCH (07:58)
[2021-09-17] MEDS: AMIODARONE HCL 200 MG TABLET PO SCH (08:25)
[2021-09-17] MEDS: AMLODIPINE 5 MG TABLET PO SCH (08:26)
[2021-09-17] MEDS: METFORMIN XR 500 MG TAB.SR.24H PO SCH ×2 (08:26→17:07)
[2021-09-17] MEDS: FUROSEMIDE 40 MG TABLET PO SCH (08:26)
[2021-09-17] MEDS: LISINOPRIL 10 MG TABLET PO SCH (08:26)
[2021-09-17] MEDS: ASPIRIN EC 81 MG TABLET.DR PO SCH (08:26)
[2021-09-17] MEDS: APIXABAN 5 MG TABLET PO SCH ×2 (08:31→17:07)
[2021-09-17] MEDS: ARGININE/GLUTAMINE/CALCIUM BMB 1 EACH POWD.PACK PO SCH ×2 (08:32→17:07)
[2021-09-17] MEDS: REMEDY ESSENTIAL ZINC PASTE 113 GM TOP SCH (12:04)
[2021-09-17 16:08] VITALS: BP 88/49
--- NOTE | 2021-09-17 19:35 | NUR ---
Patient in bed awake, alert and oriented x3, in no acute distress. Bed in locked and low position. Call light within easy reach.
[2021-09-17 20:33] VITALS: BP 143/70
[2021-09-17] MEDS: TAMSULOSIN HCL 0.4 MG CAP.SR.24H PO SCH (21:23)
[2021-09-17] MEDS: MIRALAX 17 GM POWD.PACK PO SCH (21:23)
[2021-09-17] MEDS: ALPRAZOLAM 0.5 MG TABLET PO PRN (21:23)
[2021-09-17] MEDS: ZOLPIDEM 5 MG TABLET PO PRN (23:11)
[2021-09-17] MEDS: HYDROMORPHONE HCL 2 MG TABLET PO PRN (23:59)
--- NOTE | 2021-09-18 06:18 | NUR ---
Patient slept well with easy arousal. No acute distress noted. Medicated for pain with good effect. Needs attended.
[2021-09-18] MEDS: PANTOPRAZOLE SODIUM 40 MG TABLET.DR PO SCH (06:22)
[2021-09-18] MEDS: MORPHINE SULFATE SR 15 MG TABLET.SA PO SCH (08:06)
[2021-09-18] MEDS: AMIODARONE HCL 200 MG TABLET PO SCH (08:09)
[2021-09-18] MEDS: ASPIRIN EC 81 MG TABLET.DR PO SCH (08:09)
[2021-09-18] MEDS: LISINOPRIL 10 MG TABLET PO SCH (08:09)
[2021-09-18] MEDS: METFORMIN XR 500 MG TAB.SR.24H PO SCH ×2 (08:14→18:16)
[2021-09-18] MEDS: APIXABAN 5 MG TABLET PO SCH ×2 (08:14→18:16)
[2021-09-18] MEDS: ARGININE/GLUTAMINE/CALCIUM BMB 1 EACH POWD.PACK PO SCH ×2 (08:15→18:17)
[2021-09-18] MEDS: FUROSEMIDE 40 MG TABLET PO SCH (08:16)
[2021-09-18] MEDS: AMLODIPINE 5 MG TABLET PO SCH (08:19)
[2021-09-18] MEDS: REMEDY ESSENTIAL ZINC PASTE 113 GM TOP SCH (08:19)
[2021-09-18 08:21] LABS: HEMATOCRIT 29.6 % (36.7-47.1); MEAN CORPUSCULAR HEMOGLOBIN 31.2 uug (23.8-33.4); MEAN CORPUSCULAR VOLUME 92.6 fL (73.0-96.2); PLATELET COUNT (AUTO) 91 K/uL (152-348)
[2021-09-18 08:48] LABS: BILIRUBIN,TOTAL 0.9 mg/dL (0.2-1.0); CREATININE 0.9 mg/dL (0.6-1.3); POTASSIUM 3.8 mmol/L (3.5-5.1); TOTAL PROTEIN, SERUM 6.4 g/dL (6.4-8.2)
[2021-09-18 09:46] VITALS: BP 138/65
[2021-09-18 11:37] LABS: EOSINOPHILS % (MANUAL) 4 % (0-8); LYMPHOCYTES % (MANUAL) 29 % (20-40); MONOCYTES % (MANUAL) 6 % (2-10); NEUTROPHILS % (MANUAL) 61 % (42-75)
[2021-09-18 17:22] VITALS: BP 143/69
[2021-09-18] MEDS ORDERED: DEXTROSE 50% 50 ML DISP.SYRIN IV PRN (18:45)
[2021-09-18 20:00] VITALS: BP 110/61
[2021-09-18] MEDS: TAMSULOSIN HCL 0.4 MG CAP.SR.24H PO SCH (20:26)
[2021-09-18] MEDS: MIRALAX 17 GM POWD.PACK PO SCH (20:27)
[2021-09-18] MEDS: BLOOD SUGAR DIAGNOSTIC 1 EACH STRIP VI SCH (20:32)
[2021-09-18] MEDS: HYDROMORPHONE HCL 2 MG TABLET PO PRN (21:08)
[2021-09-18] MEDS: ZOLPIDEM 5 MG TABLET PO PRN (22:00)
--- NOTE | 2021-09-19 04:14 | NUR ---
AAOx4 OOB to the BR with standy assist. Fall precautions maintained. VSS. No acute distress noted. Tolerated po meds well. Needs attended. Kept comfortable.Will monitor patient.
[2021-09-19] MEDS: PANTOPRAZOLE SODIUM 40 MG TABLET.DR PO SCH (06:12)
[2021-09-19] MEDS: BLOOD SUGAR DIAGNOSTIC 1 EACH STRIP VI SCH ×4 (06:46→20:28)
[2021-09-19] MEDS: METFORMIN XR 500 MG TAB.SR.24H PO SCH ×2 (08:30→17:07)
[2021-09-19 09:00] VITALS: BP 128/62
[2021-09-19] MEDS: REMEDY ESSENTIAL ZINC PASTE 113 GM TOP SCH (09:00)
--- NOTE | 2021-09-19 09:00 | NUR ---
NSG: Received Pt resting in bed. Alert and oriented x3, respirations even and unlabored at room air .Up with PT ambulating in the hallway with FWW. Kept comfortable. Denies any pain nor any discomfort . OOB to bedside commode.Will continue to monitor closely for comfort and safety.call light w/in reach.
[2021-09-19] MEDS: AMLODIPINE 5 MG TABLET PO SCH (10:21)
[2021-09-19] MEDS: MORPHINE SULFATE SR 15 MG TABLET.SA PO SCH (10:21)
[2021-09-19] MEDS: ASPIRIN EC 81 MG TABLET.DR PO SCH (10:22)
[2021-09-19] MEDS: LISINOPRIL 10 MG TABLET PO SCH (10:22)
[2021-09-19] MEDS: ARGININE/GLUTAMINE/CALCIUM BMB 1 EACH POWD.PACK PO SCH ×2 (10:23→16:38)
[2021-09-19] MEDS: APIXABAN 5 MG TABLET PO SCH ×2 (10:27→16:37)
[2021-09-19] MEDS: FUROSEMIDE 40 MG TABLET PO SCH (10:27)
[2021-09-19] MEDS: AMIODARONE HCL 200 MG TABLET PO SCH (10:37)
[2021-09-19 16:37] VITALS: BP 114/58
[2021-09-19] MEDS: INSULIN REGULAR, HUMAN 300 UNIT/3 ML VIAL SQ PRN (16:47)
--- NOTE | 2021-09-19 19:00 | NUR ---
Received patient on bed, alert and oriented x4, no signs of respiratory distress, no complaint of pain, safety precautions provided, call light placed within reach.
[2021-09-19 20:21] VITALS: BP 130/62
[2021-09-19] MEDS: TAMSULOSIN HCL 0.4 MG CAP.SR.24H PO SCH (20:23)
[2021-09-19] MEDS: MIRALAX 17 GM POWD.PACK PO SCH ×2 (20:24→21:00)
[2021-09-19] MEDS: ZOLPIDEM 5 MG TABLET PO PRN (21:05)
[2021-09-19] MEDS: ALPRAZOLAM 0.5 MG TABLET PO PRN (21:16)
--- NOTE | 2021-09-19 21:30 | NUR ---
Requested for Xanax 2mg PO and Ambien 10mg PO, given.
--- NOTE | 2021-09-20 05:31 | NUR ---
Slept well, not in respiratory distress, no complaint of pain. For continuity of care.
[2021-09-20] MEDS: PANTOPRAZOLE SODIUM 40 MG TABLET.DR PO SCH (06:05)
[2021-09-20] MEDS: BLOOD SUGAR DIAGNOSTIC 1 EACH STRIP VI SCH ×4 (06:12→20:31)
[2021-09-20 08:30] VITALS: BP 133/65
[2021-09-20] MEDS: MORPHINE SULFATE SR 15 MG TABLET.SA PO SCH (08:38)
[2021-09-20] MEDS: ARGININE/GLUTAMINE/CALCIUM BMB 1 EACH POWD.PACK PO SCH ×2 (08:38→16:43)
[2021-09-20] MEDS: FUROSEMIDE 40 MG TABLET PO SCH (08:38)
[2021-09-20] MEDS: ASPIRIN EC 81 MG TABLET.DR PO SCH (08:38)
[2021-09-20] MEDS: APIXABAN 5 MG TABLET PO SCH ×2 (08:41→16:42)
[2021-09-20] MEDS: AMLODIPINE 5 MG TABLET PO SCH (08:43)
[2021-09-20] MEDS: AMIODARONE HCL 200 MG TABLET PO SCH (08:43)
[2021-09-20] MEDS: REMEDY ESSENTIAL ZINC PASTE 113 GM TOP SCH (08:44)
[2021-09-20] MEDS: METFORMIN XR 500 MG TAB.SR.24H PO SCH ×2 (08:44→17:29)
[2021-09-20] MEDS: LISINOPRIL 10 MG TABLET PO SCH (08:44)
[2021-09-20] MEDS: INSULIN REGULAR, HUMAN 300 UNIT/3 ML VIAL SQ PRN (08:48)
--- NOTE | 2021-09-20 09:00 | NUR ---
Dr. Smith made aware of patient complain of burning sensation when urinating. UA with c+S ordered as well as pyridium prn as per patient request.
[2021-09-20] MEDS: PHENAZOPYRIDINE HCL 100 MG TABLET PO PRN ×2 (10:49→16:40)
--- NOTE | 2021-09-20 11:10 | NUR ---
Patient is AAO x4, able to make needs known. Able to participate with therapy. Patine tis continent of B+B. Still c/o generalized pain, morphine PO provided as ordered. Able to eat breakfast without assistance, no complications. All needs attended by staff.
[2021-09-20 16:00] VITALS: BP 109/57
[2021-09-20 19:11] LABS: *BILIRUBIN,URIN NEGATIVE (NEGATIVE); *BLOOD, URINE NEGATIVE (NEGATIVE); *CLARITY,URINE CLEAR (CLEAR); *COLOR,URINE YELLOW (YELLOW); *KETONES,URINE NEGATIVE (NEGATIVE); LEUKOCYTE ESTERASE ,URINE NEGATIVE (NEGATIVE); NITRITE, URINE POSITIVE (NEGATIVE); UGLUCOSE NEGATIVE (NEGATIVE)
[2021-09-20 19:53] VITALS: BP 115/56
[2021-09-20] MEDS: TAMSULOSIN HCL 0.4 MG CAP.SR.24H PO SCH (20:25)
[2021-09-20] MEDS: MIRALAX 17 GM POWD.PACK PO SCH (20:31)
[2021-09-20] MEDS: ZOLPIDEM 5 MG TABLET PO PRN (21:30)
[2021-09-20 21:54] LABS: BACTERIA,URINE NONE SEEN /HPF (NONE SEEN); RBC,URINE 0-3 /HPF (0-3); SQUAMOUS EPITHELIAL CELL,UR NONE SEEN /HPF (NONE SEEN); WBC,URINE 0-3 /HPF (0-3)
[2021-09-21] MEDS: HYDROMORPHONE HCL 2 MG TABLET PO PRN ×2 (02:48→23:11)
--- NOTE | 2021-09-21 03:36 | NUR ---
Patient requesting Construction Plant Operator consult due to increased urination. Will endorse accordingly.
[2021-09-21] MEDS: PANTOPRAZOLE SODIUM 40 MG TABLET.DR PO SCH (08:26)
[2021-09-21] MEDS: LISINOPRIL 10 MG TABLET PO SCH (09:00)
[2021-09-21] MEDS: AMLODIPINE 5 MG TABLET PO SCH (09:00)
[2021-09-21] MEDS: AMIODARONE HCL 200 MG TABLET PO SCH (10:45)
[2021-09-21] MEDS: METFORMIN XR 500 MG TAB.SR.24H PO SCH ×2 (10:45→17:39)
[2021-09-21] MEDS: ASPIRIN EC 81 MG TABLET.DR PO SCH (10:46)
[2021-09-21] MEDS: APIXABAN 5 MG TABLET PO SCH ×2 (10:47→17:37)
[2021-09-21] MEDS: FUROSEMIDE 40 MG TABLET PO SCH (10:48)
[2021-09-21] MEDS: ARGININE/GLUTAMINE/CALCIUM BMB 1 EACH POWD.PACK PO SCH ×2 (10:48→17:38)
[2021-09-21] MEDS: REMEDY ESSENTIAL ZINC PASTE 113 GM TOP SCH (10:51)
[2021-09-21] MEDS: MORPHINE SULFATE SR 15 MG TABLET.SA PO SCH (10:52)
[2021-09-21 11:55] VITALS: BP 103/54
[2021-09-21 15:34] VITALS: BP 124/63
--- NOTE | 2021-09-21 16:07 | NUR ---
INTERDISCIPLINARY TEAM CONFERENCE
[2021-09-21] MEDS: PHENAZOPYRIDINE HCL 100 MG TABLET PO PRN (19:09)
[2021-09-21 20:00] VITALS: BP 123/64
--- NOTE | 2021-09-21 21:00 | NUR ---
RECEIVED PATIENT IN HIS ROOM IN BED. HE IS NOTED A/O X 4. HIS BREATHING IS EVEN AND UNLABORED. HIS V/S ARE STABLE. ALL HIS NEEDS WERE MET AT THIS TIME. PATIENT IS COOPERATIVE WITH PLAN OF CARE. WILL CONTINUE TO MONITOR.
[2021-09-21] MEDS: TAMSULOSIN HCL 0.4 MG CAP.SR.24H PO SCH (21:10)
[2021-09-21] MEDS: MIRALAX 17 GM POWD.PACK PO SCH (21:10)
[2021-09-21] MEDS: ZOLPIDEM 5 MG TABLET PO PRN (21:11)
[2021-09-22 04:14] VITALS: BP 131/71
--- NOTE | 2021-09-22 05:22 | NUR ---
PATIENT SLEPT COMFORTABLE MOST OF THE NIGHT. HE WAS GIVEN AMBIEN 10MG AND DILAUDID 4MG LAST NIGHT. HIS WEIGHT IS APPROX 202LB. ALL HIS NEEDS WERE MET. WILL CONTINUE TO MONITOR.
[2021-09-22] MEDS: PANTOPRAZOLE SODIUM 40 MG TABLET.DR PO SCH (07:00)
--- NOTE | 2021-09-22 07:25 | NUR ---
Patient with note on door saying not to wake up patient before 0800.
[2021-09-22] MEDS: MORPHINE SULFATE SR 15 MG TABLET.SA PO SCH (08:45)
[2021-09-22] MEDS: ASPIRIN EC 81 MG TABLET.DR PO SCH (08:45)
[2021-09-22] MEDS: AMIODARONE HCL 200 MG TABLET PO SCH (08:45)
[2021-09-22] MEDS: AMLODIPINE 5 MG TABLET PO SCH (08:45)
[2021-09-22] MEDS: REMEDY ESSENTIAL ZINC PASTE 113 GM TOP SCH (08:46)
[2021-09-22] MEDS: LISINOPRIL 10 MG TABLET PO SCH (08:46)
[2021-09-22] MEDS: METFORMIN XR 500 MG TAB.SR.24H PO SCH ×2 (08:47→17:07)
[2021-09-22] MEDS: ARGININE/GLUTAMINE/CALCIUM BMB 1 EACH POWD.PACK PO SCH ×2 (08:47→17:10)
[2021-09-22] MEDS: APIXABAN 5 MG TABLET PO SCH ×2 (08:53→17:10)
[2021-09-22] MEDS: FUROSEMIDE 40 MG TABLET PO SCH (08:53)
[2021-09-22 11:56] VITALS: BP 116/60
[2021-09-22] MEDS: PHENAZOPYRIDINE HCL 100 MG TABLET PO PRN ×2 (12:10→21:06)
[2021-09-22 16:00] VITALS: BP 114/58
--- NOTE | 2021-09-22 18:15 | NUR ---
Patient received care well throughout shift, with no complaints of pain or distress. Patient tolerating PT/OT today and showered with OT. Patient requesting frequency of pyridium to be changed. Dr. Smith notified, and medication adjusted. Will endorse information to PM nurse. Patient resting comfortably in bed. Bed left in lowest position with call light within reach.
[2021-09-22 20:00] VITALS: BP 124/62
--- NOTE | 2021-09-22 20:10 | NUR ---
Patient received in bed awake alert and oriented x 4. In no acute distress. Denies pain at this time. Needs assessed and attended to. Call light placed within easy reach.
[2021-09-22] MEDS: MIRALAX 17 GM POWD.PACK PO SCH (21:03)
[2021-09-22] MEDS: TAMSULOSIN HCL 0.4 MG CAP.SR.24H PO SCH (21:03)
[2021-09-22] MEDS: ZOLPIDEM 5 MG TABLET PO PRN (21:58)
[2021-09-22] MEDS: HYDROMORPHONE HCL 2 MG TABLET PO PRN (22:58)
[2021-09-23] MEDS: PANTOPRAZOLE SODIUM 40 MG TABLET.DR PO SCH (06:23)
--- NOTE | 2021-09-23 06:54 | NUR ---
Patient slept well, easy to arouse. No acute distress noted. Medicated for pain with good effect. Needs attended. Maintained bed in locked and low position.
[2021-09-23] MEDS: MORPHINE SULFATE SR 15 MG TABLET.SA PO SCH (08:40)
[2021-09-23] MEDS: FUROSEMIDE 40 MG TABLET PO SCH (08:40)
[2021-09-23] MEDS: METFORMIN XR 500 MG TAB.SR.24H PO SCH ×2 (08:40→17:07)
[2021-09-23] MEDS: ASPIRIN EC 81 MG TABLET.DR PO SCH (08:40)
[2021-09-23] MEDS: AMIODARONE HCL 200 MG TABLET PO SCH (08:41)
[2021-09-23] MEDS: AMLODIPINE 5 MG TABLET PO SCH (08:41)
[2021-09-23] MEDS: LISINOPRIL 10 MG TABLET PO SCH (08:41)
[2021-09-23] MEDS: APIXABAN 5 MG TABLET PO SCH ×2 (08:44→17:07)
[2021-09-23] MEDS: ARGININE/GLUTAMINE/CALCIUM BMB 1 EACH POWD.PACK PO SCH ×2 (08:44→17:07)
[2021-09-23] MEDS: REMEDY ESSENTIAL ZINC PASTE 113 GM TOP SCH (08:44)
[2021-09-23 16:12] VITALS: BP 116/56
[2021-09-23] MEDS: PHENAZOPYRIDINE HCL 100 MG TABLET PO PRN (17:11)
--- NOTE | 2021-09-23 18:36 | NUR ---
Patient received care well throughout shift with no complaints of pain or distress. Patient tolerating PT/OT today. Wound management provided. Bed left in lowest position with call light within reach. Comfort measures provided. Will endorse information to PM nurse.
--- NOTE | 2021-09-23 19:55 | NUR ---
Received patient up in a wheelchair, alert and oriented x 4. No acute distress noted, denies chest pain. Assisted back to bed. Call light placed within easy reach.
[2021-09-23] MEDS: ZOLPIDEM 5 MG TABLET PO PRN (21:26)
[2021-09-23] MEDS: MIRALAX 17 GM POWD.PACK PO SCH (21:26)
[2021-09-23] MEDS: TAMSULOSIN HCL 0.4 MG CAP.SR.24H PO SCH (21:26)
[2021-09-23] MEDS: HYDROMORPHONE HCL 2 MG TABLET PO PRN (23:24)
[2021-09-24 04:49] VITALS: BP 109/53
[2021-09-24] MEDS: PANTOPRAZOLE SODIUM 40 MG TABLET.DR PO SCH (06:47)
--- NOTE | 2021-09-24 07:14 | NUR ---
Slept intermittently during the night, easy to arouse. Medicated for pain with good effect. Assisted by SEMICONDUCTOR PROCESSING TECHNICIAN to the BR. Needs attended. Call light placed within easy reach.
[2021-09-24] MEDS: METFORMIN XR 500 MG TAB.SR.24H PO SCH ×2 (08:47→18:15)
[2021-09-24] MEDS: LISINOPRIL 10 MG TABLET PO SCH (09:00)
[2021-09-24] MEDS: AMLODIPINE 5 MG TABLET PO SCH (09:00)
[2021-09-24] MEDS: REMEDY ESSENTIAL ZINC PASTE 113 GM TOP SCH (09:00)
[2021-09-24] MEDS: ARGININE/GLUTAMINE/CALCIUM BMB 1 EACH POWD.PACK PO SCH ×2 (09:00→17:56)
[2021-09-24] MEDS: MORPHINE SULFATE SR 15 MG TABLET.SA PO SCH ×2 (09:00→15:24)
[2021-09-24] MEDS: ASPIRIN EC 81 MG TABLET.DR PO SCH (10:14)
[2021-09-24] MEDS: APIXABAN 5 MG TABLET PO SCH ×3 (10:14→18:17)
[2021-09-24] MEDS: FUROSEMIDE 40 MG TABLET PO SCH (10:14)
[2021-09-24] MEDS: AMIODARONE HCL 200 MG TABLET PO SCH (10:19)
[2021-09-24] MEDS: BISACODYL 10 MG SUPP.RECT RC PRN (14:47)
[2021-09-24 16:33] VITALS: BP 115/59
--- NOTE | 2021-09-24 19:30 | NUR ---
Patient resting in bed, awake alert and oriented x 4. Not in respiratory distress, no complaint of pain at the moment. Stated "I want my sleeping pill after 10PM." Call light placed within easy reach.
[2021-09-24 20:51] VITALS: BP 127/60
[2021-09-24] MEDS: TAMSULOSIN HCL 0.4 MG CAP.SR.24H PO SCH (21:00)
[2021-09-24] MEDS: MIRALAX 17 GM POWD.PACK PO SCH (21:00)
[2021-09-24] MEDS: ZOLPIDEM 5 MG TABLET PO PRN (22:12)
[2021-09-24] MEDS: HYDROMORPHONE HCL 2 MG TABLET PO PRN (22:50)
[2021-09-25 04:39] VITALS: BP 130/66
--- NOTE | 2021-09-25 07:01 | NUR ---
Patient requested for sleeping pill, slept intermittently. At 01:30 patient assisted with repositioning and before he went back to sleep instructed the nurse not to wake him up until 08:00, also stated he will take his morning pill when he wakes up since he will not eat breakfast until 09:00. Endorsed to morning shift.
[2021-09-25 08:30] VITALS: BP 113/68
[2021-09-25] MEDS ORDERED: MORPHINE SULFATE SR 15 MG TABLET.SA PO SCH (09:00)
[2021-09-25] MEDS: METFORMIN XR 500 MG TAB.SR.24H PO SCH (09:20)
[2021-09-25] MEDS: AMLODIPINE 5 MG TABLET PO SCH (09:21)
[2021-09-25] MEDS: ASPIRIN EC 81 MG TABLET.DR PO SCH (09:21)
[2021-09-25] MEDS: AMIODARONE HCL 200 MG TABLET PO SCH (09:21)
[2021-09-25] MEDS: APIXABAN 5 MG TABLET PO SCH (09:22)
[2021-09-25 09:23] VITALS: BP 113/68
[2021-09-25] MEDS: ARGININE/GLUTAMINE/CALCIUM BMB 1 EACH POWD.PACK PO SCH (09:23)
[2021-09-25] MEDS: FUROSEMIDE 40 MG TABLET PO SCH (09:23)
[2021-09-25] MEDS: REMEDY ESSENTIAL ZINC PASTE 113 GM TOP SCH (09:23)
[2021-09-25] MEDS: LISINOPRIL 10 MG TABLET PO SCH (09:23)
[2021-09-25] MEDS: PANTOPRAZOLE SODIUM 40 MG TABLET.DR PO SCH (09:24)
[2021-09-25] MEDS ORDERED: GLUCERNA SHAKE 237 ML CAN PO SCH (10:30)
--- NOTE | 2021-09-25 13:20 | NUR ---
family here to pick him up. they took him without notifying me before i was able to take pics of his sacral area. d/c instructions given to pt earlier this am verbalizes understanding
== END 2021-09-25 12:50 | disposition home health service (06) | DRG 291 ==
PROVIDERS: ADMIT Physical Medicine & Rehabilitation Pain Medicine; ATTEND Physical Medicine & Rehabilitation Pain Medicine
DX: I11.0 Hypertensive heart disease with heart failure (principal); E43 Unspecified severe protein-calorie malnutrition; I50.33 Acute on chronic diastolic (congestive) heart failure; N17.0 Acute kidney failure with tubular necrosis; E87.3 Alkalosis; J98.11 Atelectasis; R53.1 Weakness; D63.8 Anemia in other chronic diseases classified elsewhere; M48.56XD Collapsed vertebra, not elsewhere classified, lumbar region, subsequent encounter for fracture with routine healing; E11.9 Type 2 diabetes mellitus without complications; E78.5 Hyperlipidemia, unspecified; I25.10 Atherosclerotic heart disease of native coronary artery without angina pectoris; I42.9 Cardiomyopathy, unspecified; I48.0 Paroxysmal atrial fibrillation; M25.78 Osteophyte, vertebrae; Z95.0 Presence of cardiac pacemaker; E88.09 Other disorders of plasma-protein metabolism, not elsewhere classified; M48.07 Spinal stenosis, lumbosacral region; Z91.81 History of falling; G89.29 Other chronic pain; D46.9 Myelodysplastic syndrome, unspecified; R29.6 Repeated falls
CPT/HCPCS: 36415; 70030-TC; 83735; 84100; 85025; 87086; 97161; 97535-GO-CO; A4663; A6209; A6213; J1170; J1815